=== PATIENT | female | born 1955 | race African-American/Black ===

== ENCOUNTER 2021-03-26 13:14 | Inpatient (IN) | payer MEDICARE, BC ==
[~2021-03-26] VITALS: Ht 167.6 cm; Wt 63.5 kg
[2021-03-26] VITALS (13 sets, daily range): BP systolic 78–110; BP diastolic 32–68
[~2021-03-26 13:14] MED LIST: BENA20TA10 PO; CARV12.545 PO; CEFU125S2 PO; CLIN300C12 PO; EZET10TA13 PO; GABA-290 PO; INSU100C6 SQ; INSU3INS6 SUBCUT; METF-416 PO; OMEG1CAP17 PO; PANT40TA51 PO; ROSU40TA PO; TICA90TA PO
[2021-03-26] MEDS ORDERED: VANCOMYCIN 1 G PREMIX 200 ML IV ONE (13:45)
[2021-03-26] MEDS ORDERED: SODIUM CHLORIDE 0.9% 1000ML BAG (SEPSIS BOLUS) IV ONE (13:45)
[2021-03-26] MEDS ORDERED: PIPERACILLIN/TAZ 3.375G PREMIX 50 ML IV ONE (13:45)
[2021-03-26] MEDS ORDERED: ONDANSETRON HCL 4MG/2ML INJ IV PRN (14:00)
[2021-03-26] MEDS ORDERED: MORPHINE SULFATE 2 MG/ML CPJ (NOT FOR IM USE) IV PRN (14:00)
[2021-03-26] MEDS ORDERED: NOREPINEPHRINE 8 MG in DEXT 5% WATER 242 ML IV PRN (14:15)
[2021-03-26] MEDS ORDERED: LEVOFLOXACIN 500MG PREMIX 100 ML IV SCH (14:30)
[2021-03-26 14:32] LABS: CLARITY URINE CLOUDY (CLEAR); COLOR URINE YELLOW (YELLOW); KETONES URINE NEGATIVE (NEGATIVE); LEUKOCYTE ESTERASE URINE NEGATIVE (NEGATIVE); NITRITE URINE NEGATIVE (NEGATIVE); OCCULT BLOOD URINE NEGATIVE (NEGATIVE); PROTEIN URINE NEGATIVE (NEGATIVE); SPECIFIC GRAVITY URINE 1.014 (1.005-1.030); UROBILINOGEN URINE 0.2 E.U./dL (0.2-1.0)
[2021-03-26 14:35] LABS: BASOPHILS % 0.3 % (0.0-2.0); EOSINOPHILS % 0.2 % (0.0-5.0); HEMATOCRIT. 24.7 % (36.0-48.0); HEMOGLOBIN. 7.7 g/dL (12.0-16.0); LYMPHOCYTES % 7.5 % (20.0-50.0); MEAN CORPUSCULAR HEMOGLOBIN 29.6 pg (28.0-32.0); MEAN CORPUSCULAR VOLUME 94.5 fL (81.0-99.0); MEAN PLATELET VOLUME 6.5 fl (7.4-10.4); MONOCYTES % 2.6 % (2.0-8.0); NEUTROPHILS % 89.4 % (40.0-76.0); PLATELET 673 x1000/uL (130-400); RED BLOOD CELL COUNT 2.62 mill/uL (4.2-5.4); RED CELL DISTRIBUTION WIDTH 16.9 % (11.6-14.6)
[2021-03-26 14:36] LABS: CHLORIDE 101 mEq/L (98-107)
[2021-03-26 14:40] LABS: PROTHROMBIN TIME 10.7 sec (9.6-11.0)
[2021-03-26] MEDS ORDERED: METRONIDAZOLE 500 MG PREMIX 100 ML IV NR ×2 (15:30→22:30)
[2021-03-26] MEDS ORDERED: NOREPINEPHRINE 8MG/250ML PMX 250 ML IV STA (16:07)
[2021-03-26] MEDS: NOREPINEPHRINE 8 MG in DEXT 5% WATER 242 ML IV PRN (16:49)
[2021-03-26] MEDS ORDERED: DEXTROSE 50% WATER 50ML SYRINGE IV PRN (20:00)
[2021-03-26] MEDS: BLOOD SUGAR DIAGNOSTIC STRIP TEST SCH (23:26)
[2021-03-26] MEDS: DEXT 5%/0.45% NACL 1000ML 1,000 ML IV SCH (23:32)
[2021-03-26] MEDS: INSULIN LISPRO 100 UNITS/ML SUBCUT SCH (23:35)
[2021-03-27] VITALS (117 sets, daily range): BP systolic 51–128; BP diastolic 25–81
[2021-03-27] MEDS: DEXT 5%/0.45% NACL 1000ML 1,000 ML IV SCH
[2021-03-27] MEDS: NOREPINEPHRINE 8 MG in DEXT 5% WATER 242 ML IV PRN ×2 (04:31→11:03)
[2021-03-27 05:36] LABS: HEMATOCRIT. 24.4 % (36.0-48.0); MEAN CORPUSCULAR HEMOGLOBIN 28.7 pg (28.0-32.0); MEAN CORPUSCULAR VOLUME 105.1 fL (81.0-99.0); MEAN PLATELET VOLUME 6.9 fl (7.4-10.4); PLATELET 685 x1000/uL (130-400); RED BLOOD CELL COUNT 2.32 mill/uL (4.2-5.4); RED CELL DISTRIBUTION WIDTH 18.4 % (11.6-14.6)
[2021-03-27 05:37] LABS: CHLORIDE 100 mEq/L (98-107)
[2021-03-27 05:49] LABS: LDL CHOLESTEROL 49 mg/dL (5-100)
[2021-03-27 05:51] LABS: HDL CHOLESTEROL 48 mg/dL (40-59); HEMOGLOBIN. 6.7 g/dL (12.0-16.0)
[2021-03-27] MEDS: BLOOD SUGAR DIAGNOSTIC STRIP TEST SCH ×4 (06:29→21:40)
[2021-03-27] MEDS: INSULIN LISPRO 100 UNITS/ML SUBCUT SCH ×4 (06:34→21:00)
[2021-03-27] MEDS ORDERED: SODIUM BICARBONATE 8.4% 1 MEQ/ML 50ML SYR IV SCH (07:00)
[2021-03-27] MEDS ORDERED: SODIUM BICARBONATE 100 MEQ in DEXTROSE 5% WATER 1,000 ML IV SCH (09:00)
[2021-03-27] MEDS ORDERED: METRONIDAZOLE 500 MG PREMIX 100 ML IV SCH (09:00)
[2021-03-27 09:16] LABS: TOTAL IRON BINDING CAPACITY 196 ug/dL (250-450)
[2021-03-27 09:29] LABS: BG BASE EXCESS -22.8 mmol/L (-2.0-2.0); BG CARBOXYHEMOGLOBIN 0.6 % (0.5-1.5); BG DEOXYHEMOGLOBIN 2.3 % (0.0-5.0); BG FRACTION INSPIRED OXYGEN 21; BG HCO3 ACT 4.6 mmol/L (22.0-26.0); BG METHEMOGLOBIN 0.4 % (0.0-1.5); BG OXYGEN SATURATION 97.7 % (92.0-98.5); BG OXYHEMOGLOBIN 96.7 % (94.0-97.0); BG PCO2 14.6 mmHg (35.0-45.0); BG PH 7.114 (7.350-7.450); BG PO2 105.2 mmHg (75.0-100.0); BG SAMPLE SITE RIGHT RADIAL; BG TOTAL HEMOGLOBIN 6.1 g/dL (12.0-18.0); BG VENT MODE ROOM AIR
[2021-03-27] MEDS: PHENYLEPHRINE 100 MG in DEXT 5% WATER 240 ML IV PRN (09:41)
[2021-03-27] MEDS ORDERED: VANCOMYCIN 500 MG PREMIX 100 ML IV NR (10:00)
[2021-03-27] MEDS ORDERED: SODIUM BICARBONATE 8.4% 1 MEQ/ML 50ML SYR IV NR ×2 (10:30→14:30)
[2021-03-27] MEDS: METRONIDAZOLE 500 MG PREMIX 100 ML IV SCH ×2 (10:35→21:42)
[2021-03-27 13:50] LABS: PLATELET ESTIMATE INCREASED
[2021-03-27 13:53] LABS: BG BASE EXCESS -20.2 mmol/L (-2.0-2.0); BG CARBOXYHEMOGLOBIN 0.3 % (0.5-1.5); BG DEOXYHEMOGLOBIN 1.7 % (0.0-5.0); BG FRACTION INSPIRED OXYGEN 21; BG HCO3 ACT 5.8 mmol/L (22.0-26.0); BG METHEMOGLOBIN 0.5 % (0.0-1.5); BG OXYGEN SATURATION 98.3 % (92.0-98.5); BG OXYHEMOGLOBIN 97.5 % (94.0-97.0); BG PCO2 14.9 mmHg (35.0-45.0); BG PH 7.205 (7.350-7.450); BG PO2 127.8 mmHg (75.0-100.0); BG SAMPLE SITE LEFT RADIAL; BG TOTAL HEMOGLOBIN 8.5 g/dL (12.0-18.0); BG VENT MODE ROOM AIR
[2021-03-27] MEDS: SODIUM BICARBONATE 150 MEQ in DEXTROSE 5% WATER 1,000 ML IV SCH (16:24)
[2021-03-27 16:28] LABS: HEMATOCRIT 24.9 % (36.0-48.0); HEMOGLOBIN 7.7 g/dL (12.0-16.0); MEAN CORPUSCULAR HEMOGLOBIN 29.5 pg (28.0-32.0); MEAN CORPUSCULAR VOLUME 94.9 fL (81.0-99.0); PLATELET 471 x1000/uL (130-400); RED BLOOD CELL COUNT 2.63 mill/uL (4.2-5.4); RED CELL DISTRIBUTION WIDTH 15.7 % (11.6-14.6)
[2021-03-27 16:38] LABS: INR 1.2; PROTHROMBIN TIME 12.3 sec (9.6-11.0)
[2021-03-27 16:43] LABS: BG BASE EXCESS -15.6 mmol/L (-2.0-2.0); BG CARBOXYHEMOGLOBIN 0.3 % (0.5-1.5); BG DEOXYHEMOGLOBIN 3.8 % (0.0-5.0); BG FRACTION INSPIRED OXYGEN 21; BG HCO3 ACT 9.4 mmol/L (22.0-26.0); BG METHEMOGLOBIN 0.3 % (0.0-1.5); BG OXYGEN SATURATION 96.2 % (92.0-98.5); BG OXYHEMOGLOBIN 95.6 % (94.0-97.0); BG PCO2 20.6 mmHg (35.0-45.0); BG PH 7.278 (7.350-7.450); BG PO2 78.9 mmHg (75.0-100.0); BG SAMPLE SITE RIGHT RADIAL; BG TOTAL HEMOGLOBIN 9.3 g/dL (12.0-18.0); BG VENT MODE ROOM AIR
[2021-03-27 18:15] LABS: T4 FREE 1.24 ng/dL (0.76-1.46)
[2021-03-27] MEDS: CEFEPIME 1,000 MG in DEXTROSE 5% WATER 50 ML IV SCH (18:21)
[2021-03-27] MEDS: PANTOPRAZOLE SODIUM 40 MG/VIAL IV SCH (21:42)
[2021-03-27 23:11] LABS: HEMATOCRIT 32.8 % (36.0-48.0); HEMOGLOBIN 10.2 g/dL (12.0-16.0); MEAN CORPUSCULAR HEMOGLOBIN 29.3 pg (28.0-32.0); MEAN CORPUSCULAR VOLUME 94.5 fL (81.0-99.0); PLATELET 432 x1000/uL (130-400); RED BLOOD CELL COUNT 3.48 mill/uL (4.2-5.4); RED CELL DISTRIBUTION WIDTH 15.8 % (11.6-14.6)
[2021-03-27 23:29] LABS: CREATINE KINASE MB FRACTION 5.6 ng/mL (0.5-3.6)
[2021-03-28] VITALS (96 sets, daily range): BP systolic 53–146; BP diastolic 34–108
[2021-03-28] MEDS: SODIUM BICARBONATE 150 MEQ in DEXTROSE 5% WATER 1,000 ML IV SCH (03:57)
[2021-03-28 04:55] LABS: HEMATOCRIT. 33.4 % (36.0-48.0); HEMOGLOBIN. 10.2 g/dL (12.0-16.0); MEAN CORPUSCULAR VOLUME 95.5 fL (81.0-99.0); MEAN PLATELET VOLUME 7.3 fl (7.4-10.4); PLATELET 414 x1000/uL (130-400); RED CELL DISTRIBUTION WIDTH 16.6 % (11.6-14.6)
[2021-03-28 04:59] LABS: INR 1.2; PROTHROMBIN TIME 12.3 sec (9.6-11.0)
[2021-03-28 05:11] LABS: PHOSPHORUS 2.1 mg/dL (2.5-4.9)
[2021-03-28 05:14] LABS: CREATINE KINASE MB FRACTION 5.6 ng/mL (0.5-3.6)
[2021-03-28 05:18] LABS: FOLIC ACID (FOLATE) SERUM 11.5 ng/mL (>5.38)
[2021-03-28] MEDS: BLOOD SUGAR DIAGNOSTIC STRIP TEST SCH ×4 (06:07→21:32)
[2021-03-28] MEDS ORDERED: SODIUM BICARBONATE 8.4% 1 MEQ/ML 50ML SYR IV NR (06:15)
[2021-03-28] MEDS: INSULIN LISPRO 100 UNITS/ML SUBCUT SCH ×4 (06:22→21:00)
[2021-03-28] MEDS ORDERED: POTASSIUM PHOS,M-BASIC-D-BASIC 15 MMOL in DEXT 5% WATER 245 ML IV ONE (07:00)
[2021-03-28 07:26] LABS: BG BASE EXCESS -4.7 mmol/L (-2.0-2.0); BG CARBOXYHEMOGLOBIN 0.2 % (0.5-1.5); BG DEOXYHEMOGLOBIN 1.6 % (0.0-5.0); BG HCO3 ACT 18.4 mmol/L (22.0-26.0); BG METHEMOGLOBIN 0.1 % (0.0-1.5); BG OXYGEN SATURATION 98.4 % (92.0-98.5); BG OXYHEMOGLOBIN 98.1 % (94.0-97.0); BG PCO2 26.5 mmHg (35.0-45.0); BG PH 7.459 (7.350-7.450); BG PO2 140.3 mmHg (75.0-100.0); BG SAMPLE SITE RIGHT RADIAL; BG TOTAL HEMOGLOBIN 8.2 g/dL (12.0-18.0); BG VENT MODE NASAL CANNULA
[2021-03-28] MEDS ORDERED: MAGNESIUM 4 G PREMIX 100 ML IV NR (08:00)
[2021-03-28] MEDS ORDERED: DIATR MEGLU/DIATRIZOATE SOLN 30ML PO SCH (08:45)
[2021-03-28] MEDS ORDERED: LEVOFLOXACIN 250MG PREMIX 100 ML IV SCH (09:00)
[2021-03-28 09:23] LABS: PLATELET ESTIMATE INCREASED
[2021-03-28 12:05] LABS: D-DIMER 0.81 mg/L FEU (<0.50)
[2021-03-28] MEDS ORDERED: MIDAZOLAM HCL 5 MG/5 ML VIAL ONE (12:27)
[2021-03-28] MEDS ORDERED: FENTANYL CITRATE/PF 50MCG/ML 2ML VIAL ONE (12:28)
[2021-03-28] MEDS ORDERED: MIDAZOLAM HCL 2 MG/2 ML VIAL IV PRN (12:41)
[2021-03-28] MEDS: METRONIDAZOLE 500 MG PREMIX 100 ML IV SCH ×2 (13:04→21:18)
[2021-03-28] MEDS: PANTOPRAZOLE SODIUM 40 MG/VIAL IV SCH ×2 (13:21→21:18)
[2021-03-28] MEDS ORDERED: LIDOCAINE HCL 1% 20ML VIAL (Pyxis) INJ ONE (13:40)
[2021-03-28] MEDS ORDERED: HEPARIN 1000 UNITS/ML 10ML ONE (13:40)
[2021-03-28 15:32] LABS: HEMATOCRIT 30.3 % (36.0-48.0); MEAN CORPUSCULAR HEMOGLOBIN 29.3 pg (28.0-32.0); MEAN CORPUSCULAR VOLUME 88.7 fL (81.0-99.0); PLATELET 413 x1000/uL (130-400); RED BLOOD CELL COUNT 3.41 mill/uL (4.2-5.4); RED CELL DISTRIBUTION WIDTH 15.5 % (11.6-14.6)
[2021-03-28] MEDS: DEXT 5%/0.45% NACL 1000ML 1,000 ML IV SCH ×2 (15:35→17:16)
[2021-03-28] MEDS: PHENYLEPHRINE 100 MG in DEXT 5% WATER 240 ML IV PRN (15:37)
[2021-03-28 15:47] LABS: CREATINE KINASE MB FRACTION 3.5 ng/mL (0.5-3.6)
[2021-03-28] MEDS: CEFEPIME 1,000 MG in DEXTROSE 5% WATER 50 ML IV SCH (17:24)
[2021-03-28] MEDS ORDERED: VANCOMYCIN 500 MG PREMIX 100 ML IV SCH (20:00)
[2021-03-28 20:09] LABS: BG BASE EXCESS 4.9 mmol/L (-2.0-2.0); BG DEOXYHEMOGLOBIN 19.1 % (0.0-5.0); BG FRACTION INSPIRED OXYGEN 32; BG HCO3 ACT 29.3 mmol/L (22.0-26.0); BG METHEMOGLOBIN 0.3 % (0.0-1.5); BG OXYGEN SATURATION 80.8 % (92.0-98.5); BG OXYHEMOGLOBIN 80.6 % (94.0-97.0); BG PCO2 42.7 mmHg (35.0-45.0); BG PH 7.455 (7.350-7.450); BG PO2 41.5 mmHg (75.0-100.0); BG TOTAL HEMOGLOBIN 10.3 g/dL (12.0-18.0)
[2021-03-28 21:45] LABS: BG BASE EXCESS 8.5 mmol/L (-2.0-2.0); BG CARBOXYHEMOGLOBIN 0.3 % (0.5-1.5); BG DEOXYHEMOGLOBIN 0.8 % (0.0-5.0); BG HCO3 ACT 32.5 mmol/L (22.0-26.0); BG METHEMOGLOBIN 0.3 % (0.0-1.5); BG OXYGEN SATURATION 99.2 % (92.0-98.5); BG OXYHEMOGLOBIN 98.6 % (94.0-97.0); BG PCO2 42.6 mmHg (35.0-45.0); BG PO2 302.7 mmHg (75.0-100.0); BG TOTAL HEMOGLOBIN 10.2 g/dL (12.0-18.0)
[2021-03-28 22:54] LABS: HEMATOCRIT 31.3 % (36.0-48.0); HEMOGLOBIN 10.7 g/dL (12.0-16.0); MEAN CORPUSCULAR HEMOGLOBIN 29.8 pg (28.0-32.0); MEAN CORPUSCULAR VOLUME 87.7 fL (81.0-99.0); PLATELET 281 x1000/uL (130-400); RED BLOOD CELL COUNT 3.57 mill/uL (4.2-5.4); RED CELL DISTRIBUTION WIDTH 15.1 % (11.6-14.6)
[2021-03-29] VITALS (82 sets, daily range): BP systolic 82–173; BP diastolic 37–94
[2021-03-29] MEDS: PHENYLEPHRINE 100 MG in DEXT 5% WATER 240 ML IV PRN (00:51)
[2021-03-29] MEDS: DEXT 5%/0.45% NACL 1000ML 1,000 ML IV SCH ×3 (00:55→17:39)
[2021-03-29] MEDS: HYDROCODONE/ACETAMINOPHEN 5/325MG TABLET PO PRN (04:32)
[2021-03-29 05:17] LABS: HEMATOCRIT. 26.4 % (36.0-48.0); HEMOGLOBIN. 8.8 g/dL (12.0-16.0); MEAN CORPUSCULAR HEMOGLOBIN 29.1 pg (28.0-32.0); MEAN CORPUSCULAR VOLUME 86.9 fL (81.0-99.0); MEAN PLATELET VOLUME 7.2 fl (7.4-10.4); PLATELET 274 x1000/uL (130-400); RED BLOOD CELL COUNT 3.04 mill/uL (4.2-5.4); RED CELL DISTRIBUTION WIDTH 15.4 % (11.6-14.6)
[2021-03-29] MEDS: BLOOD SUGAR DIAGNOSTIC STRIP TEST SCH ×4 (06:48→21:00)
[2021-03-29] MEDS: INSULIN LISPRO 100 UNITS/ML SUBCUT SCH ×4 (06:48→21:00)
[2021-03-29 07:06] LABS: PHOSPHORUS 0.8 mg/dL (2.5-4.9)
[2021-03-29] MEDS ORDERED: POTASSIUM PHOS,M-BASIC-D-BASIC 30 MMOL in SODIUM CHLORIDE 0.9% 500 ML IV ONE (08:00)
[2021-03-29] MEDS ORDERED: POTASSIUM CHLORIDE INJ 40 MEQ in DEXT 5% WATER 250 ML IV NR (08:00)
[2021-03-29] MEDS: PANTOPRAZOLE SODIUM 40 MG/VIAL IV SCH ×2 (09:35→20:58)
[2021-03-29] MEDS: METRONIDAZOLE 500 MG PREMIX 100 ML IV SCH ×2 (09:36→20:58)
[2021-03-29] MEDS ORDERED: MAGNESIUM 2 G PREMIX 50 ML IV SCH (10:00)
[2021-03-29] MEDS ORDERED: DIATR MEGLU/DIATRIZOATE SOLN 30ML PO NR (11:05)
[2021-03-29] MEDS: FERROUS SULFATE 300MG/5ML UDC PO SCH ×2 (12:00→17:39)
[2021-03-29 14:52] LABS: HEMATOCRIT 29.4 % (36.0-48.0); HEMOGLOBIN 9.9 g/dL (12.0-16.0); MEAN CORPUSCULAR HEMOGLOBIN 29.8 pg (28.0-32.0); MEAN CORPUSCULAR VOLUME 88.6 fL (81.0-99.0); PLATELET 274 x1000/uL (130-400); RED BLOOD CELL COUNT 3.32 mill/uL (4.2-5.4); RED CELL DISTRIBUTION WIDTH 15.3 % (11.6-14.6)
[2021-03-29 17:03] LABS: PLATELET ESTIMATE NORMAL
[2021-03-29] MEDS: CEFEPIME 1,000 MG in DEXTROSE 5% WATER 50 ML IV SCH (17:38)
[2021-03-30] VITALS (95 sets, daily range): BP systolic 73–155; BP diastolic 29–79
[2021-03-30 01:09] LABS: HEMATOCRIT 26.5 % (36.0-48.0); HEMOGLOBIN 9.1 g/dL (12.0-16.0); MEAN CORPUSCULAR HEMOGLOBIN 30.1 pg (28.0-32.0); MEAN CORPUSCULAR VOLUME 86.9 fL (81.0-99.0); PLATELET 266 x1000/uL (130-400); RED BLOOD CELL COUNT 3.04 mill/uL (4.2-5.4); RED CELL DISTRIBUTION WIDTH 15.1 % (11.6-14.6)
[2021-03-30] MEDS: DEXT 5%/0.45% NACL 1000ML 1,000 ML IV SCH ×2 (02:35→11:28)
[2021-03-30 05:03] LABS: HEMOGLOBIN. 9.6 g/dL (12.0-16.0); MEAN PLATELET VOLUME 7.1 fl (7.4-10.4); PLATELET 290 x1000/uL (130-400); RED CELL DISTRIBUTION WIDTH 15.1 % (11.6-14.6)
[2021-03-30 05:11] LABS: PHOSPHORUS 2.1 mg/dL (2.5-4.9)
[2021-03-30] MEDS: INSULIN LISPRO 100 UNITS/ML SUBCUT SCH ×4 (06:15→20:47)
[2021-03-30] MEDS: PHENYLEPHRINE 100 MG in DEXT 5% WATER 240 ML IV PRN (06:18)
[2021-03-30] MEDS: BLOOD SUGAR DIAGNOSTIC STRIP TEST SCH ×4 (06:30→20:36)
[2021-03-30] MEDS: DOCUSATE SODIUM 100MG CAPSULE PO PRN (09:24)
[2021-03-30] MEDS: FERROUS SULFATE 300MG/5ML UDC PO SCH ×3 (09:24→17:47)
[2021-03-30] MEDS: PANTOPRAZOLE SODIUM 40 MG/VIAL IV SCH ×2 (09:24→20:36)
[2021-03-30] MEDS ORDERED: LEVOFLOXACIN 250MG PREMIX 100 ML IV SCH (11:00)
[2021-03-30] MEDS: HYDROCODONE/ACETAMINOPHEN 5/325MG TABLET PO PRN (11:11)
[2021-03-30] MEDS: METRONIDAZOLE 500 MG PREMIX 100 ML IV SCH ×2 (11:11→20:36)
[2021-03-30] MEDS ORDERED: PHENYLEPHRINE 100 MG in DEXT 5% WATER 240 ML IV PRN (11:30)
[2021-03-30] MEDS ORDERED: POTASSIUM PHOS,M-BASIC-D-BASIC 15 MMOL in DEXT 5% WATER 245 ML IV NR (11:30)
[2021-03-30] MEDS: METOCLOPRAMIDE HCL 10MG/2ML VIAL IV SCH ×3 (11:53→23:04)
[2021-03-30 14:19] LABS: PLATELET ESTIMATE NORMAL
[2021-03-30] MEDS ORDERED: VANCOMYCIN 750 MG PREMIX 150 ML IV SCH (15:00)
[2021-03-30] MEDS: CEFEPIME 1,000 MG in DEXTROSE 5% WATER 50 ML IV SCH (17:42)
[2021-03-31] VITALS (96 sets, daily range): BP systolic 65–168; BP diastolic 48–109
[2021-03-31] MEDS: BLOOD SUGAR DIAGNOSTIC STRIP TEST SCH ×4 (05:52→20:57)
[2021-03-31 05:57] LABS: CHLORIDE 104 mEq/L (98-107)
[2021-03-31 05:59] LABS: BASOPHILS % 0.3 % (0.0-2.0); EOSINOPHILS % 1.7 % (0.0-5.0); HEMOGLOBIN. 8.5 g/dL (12.0-16.0); LYMPHOCYTES % 8.3 % (20.0-50.0); MEAN CORPUSCULAR HEMOGLOBIN 28.8 pg (28.0-32.0); MEAN CORPUSCULAR VOLUME 88.1 fL (81.0-99.0); MEAN PLATELET VOLUME 7.6 fl (7.4-10.4); MONOCYTES % 4.3 % (2.0-8.0); NEUTROPHILS % 85.4 % (40.0-76.0); PLATELET 253 x1000/uL (130-400); RED BLOOD CELL COUNT 2.95 mill/uL (4.2-5.4); RED CELL DISTRIBUTION WIDTH 15.1 % (11.6-14.6)
[2021-03-31] MEDS: FERROUS SULFATE 300MG/5ML UDC PO SCH ×3 (06:00→17:09)
[2021-03-31] MEDS: INSULIN LISPRO 100 UNITS/ML SUBCUT SCH ×4 (06:00→20:57)
[2021-03-31] MEDS: METOCLOPRAMIDE HCL 10MG/2ML VIAL IV SCH ×4 (06:01→23:49)
[2021-03-31 06:07] LABS: PHOSPHORUS 1.6 mg/dL (2.5-4.9)
[2021-03-31] MEDS: PANTOPRAZOLE SODIUM 40 MG/VIAL IV SCH ×2 (08:29→20:57)
[2021-03-31] MEDS: METRONIDAZOLE 500 MG PREMIX 100 ML IV SCH ×2 (08:30→20:56)
[2021-03-31] MEDS: DOCUSATE SODIUM 100MG CAPSULE PO PRN (08:30)
[2021-03-31] MEDS: BISACODYL 5MG TABLET PO SCH ×2 (08:30→09:00)
[2021-03-31] MEDS: HYDROCODONE/ACETAMINOPHEN 5/325MG TABLET PO PRN (10:35)
[2021-03-31] MEDS ORDERED: POTASSIUM PHOS,M-BASIC-D-BASIC 30 MMOL in SODIUM CHLORIDE 0.9% 500 ML IV SCH (14:00)
[2021-03-31] MEDS ORDERED: [UNRECOGNIZED DRUG - REMARK] XX SCH (14:45)
[2021-03-31] MEDS: ACETAMINOPHEN 325MG TABLET PO PRN (15:01)
[2021-03-31] MEDS ORDERED: VANCOMYCIN 750 MG PREMIX 150 ML IV SCH (16:00)
[2021-03-31] MEDS: CEFEPIME 1,000 MG in DEXTROSE 5% WATER 50 ML IV SCH (17:10)
[2021-04-01] VITALS (60 sets, daily range): BP systolic 92–165; BP diastolic 49–84
[2021-04-01 04:28] LABS: BASOPHILS % 0.2 % (0.0-2.0); EOSINOPHILS % 1.8 % (0.0-5.0); HEMATOCRIT. 25.3 % (36.0-48.0); HEMOGLOBIN. 8.4 g/dL (12.0-16.0); LYMPHOCYTES % 11.9 % (20.0-50.0); MEAN CORPUSCULAR HEMOGLOBIN 29.1 pg (28.0-32.0); MEAN CORPUSCULAR VOLUME 87.6 fL (81.0-99.0); MEAN PLATELET VOLUME 6.8 fl (7.4-10.4); MONOCYTES % 8.3 % (2.0-8.0); NEUTROPHILS % 77.8 % (40.0-76.0); PLATELET 222 x1000/uL (130-400); RED BLOOD CELL COUNT 2.89 mill/uL (4.2-5.4); RED CELL DISTRIBUTION WIDTH 14.8 % (11.6-14.6)
[2021-04-01 04:43] LABS: CHLORIDE 107 mEq/L (98-107)
[2021-04-01 04:50] LABS: PHOSPHORUS 2.1 mg/dL (2.5-4.9)
[2021-04-01] MEDS: METOCLOPRAMIDE HCL 10MG/2ML VIAL IV SCH ×4 (05:49→23:06)
[2021-04-01] MEDS: FERROUS SULFATE 300MG/5ML UDC PO SCH ×3 (05:49→18:21)
[2021-04-01] MEDS: BLOOD SUGAR DIAGNOSTIC STRIP TEST SCH ×4 (06:39→20:46)
[2021-04-01] MEDS: INSULIN LISPRO 100 UNITS/ML SUBCUT SCH ×4 (06:39→20:46)
[2021-04-01] MEDS: DOCUSATE SODIUM 100MG CAPSULE PO PRN (08:42)
[2021-04-01] MEDS: PANTOPRAZOLE SODIUM 40 MG/VIAL IV SCH ×2 (08:42→20:46)
[2021-04-01] MEDS: METRONIDAZOLE 500 MG PREMIX 100 ML IV SCH ×2 (08:43→20:46)
[2021-04-01] MEDS: BISACODYL 5MG TABLET PO SCH (08:43)
[2021-04-01] MEDS ORDERED: POTASSIUM CHLORIDE INJ 60 MEQ in DEXT 5% WATER 500 ML IV SCH (09:00)
[2021-04-01] MEDS ORDERED: POTASSIUM CHLORIDE 20MEQ/PACKET PO SCH (09:00)
[2021-04-01] MEDS ORDERED: SODIUM PHOS,M-BASIC-D-BASIC 30 MM in DEXT 5% WATER 500 ML IV SCH (11:00)
[2021-04-01] MEDS: ACETAMINOPHEN 325MG TABLET PO PRN ×2 (12:00→18:49)
[2021-04-01] MEDS: CEFEPIME 1,000 MG in DEXTROSE 5% WATER 50 ML IV SCH (17:50)
[2021-04-01] MEDS: MORPHINE SULFATE 2 MG/ML CPJ (NOT FOR IM USE) IV PRN (23:06)
[2021-04-02] VITALS (51 sets, daily range): BP systolic 72–158; BP diastolic 37–102
[2021-04-02 05:57] LABS: CHLORIDE 108 mEq/L (98-107)
[2021-04-02 06:00] LABS: HEMATOCRIT. 25.3 % (36.0-48.0); HEMOGLOBIN. 8.5 g/dL (12.0-16.0); MEAN CORPUSCULAR HEMOGLOBIN 29.5 pg (28.0-32.0); MEAN CORPUSCULAR VOLUME 87.9 fL (81.0-99.0); MEAN PLATELET VOLUME 7.5 fl (7.4-10.4); PLATELET 262 x1000/uL (130-400); RED BLOOD CELL COUNT 2.87 mill/uL (4.2-5.4); RED CELL DISTRIBUTION WIDTH 15.3 % (11.6-14.6)
[2021-04-02] MEDS: FERROUS SULFATE 300MG/5ML UDC PO SCH ×2 (06:26→11:44)
[2021-04-02] MEDS: INSULIN LISPRO 100 UNITS/ML SUBCUT SCH ×3 (06:27→16:50)
[2021-04-02] MEDS: METOCLOPRAMIDE HCL 10MG/2ML VIAL IV SCH ×2 (06:27→11:44)
[2021-04-02] MEDS: BLOOD SUGAR DIAGNOSTIC STRIP TEST SCH ×3 (06:27→16:49)
[2021-04-02] MEDS ORDERED: POTASSIUM CHLORIDE 20MEQ/PACKET PO SCH (09:00)
[2021-04-02] MEDS: METRONIDAZOLE 500 MG PREMIX 100 ML IV SCH (09:58)
[2021-04-02] MEDS: PANTOPRAZOLE SODIUM 40 MG/VIAL IV SCH (10:00)
[2021-04-02] MEDS ORDERED: MAGNESIUM 4 G PREMIX 100 ML IV SCH (10:00)
[2021-04-02] MEDS: BISACODYL 5MG TABLET PO SCH (10:01)
[2021-04-02] MEDS: DOCUSATE SODIUM 100MG CAPSULE PO PRN (10:01)
[2021-04-02 10:33] LABS: PLATELET ESTIMATE NORMAL
[2021-04-02] MEDS: MORPHINE SULFATE 2 MG/ML CPJ (NOT FOR IM USE) IV PRN (15:06)
[2021-04-02] MEDS: CEFEPIME 1,000 MG in DEXTROSE 5% WATER 50 ML IV SCH (16:22)
== END 2021-04-02 20:20 | DRG 871 ==
LOC: ER 13:50 → ENRESERV 15:11 → CANRESERV 15:11 → EDBEDREQSVC 16:07 → MICUSO 16:07 → SUPCPDRO 18:22 → ENRESERV 19:46 → MICUSO 21:08
PROVIDERS: ADMIT Internal Medicine Nephrology; ATTEND Internal Medicine Nephrology
PROC: 06HY33Z Insertion of Infusion Device into Lower Vein, Percutaneous Approach (ICD-10-PCS; 2021-03-26)
PROC: B54BZZA Ultrasonography of Right Lower Extremity Veins, Guidance (ICD-10-PCS; 2021-03-26)
PROC: 30233N1 Transfusion of Nonautologous Red Blood Cells into Peripheral Vein, Percutaneous Approach (ICD-10-PCS; principal; 2021-03-27)
PROC: 02HV33Z Insertion of Infusion Device into Superior Vena Cava, Percutaneous Approach (ICD-10-PCS; 2021-03-27)
PROC: B548ZZA Ultrasonography of Superior Vena Cava, Guidance (ICD-10-PCS; 2021-03-27)
PROC: 02HV33Z Insertion of Infusion Device into Superior Vena Cava, Percutaneous Approach (ICD-10-PCS; 2021-03-28)
PROC: B548ZZA Ultrasonography of Superior Vena Cava, Guidance (ICD-10-PCS; 2021-03-28)
PROC: 0DJ08ZZ Inspection of Upper Intestinal Tract, Via Natural or Artificial Opening Endoscopic (ICD-10-PCS; 2021-03-28)
PROC: 5A1D70Z Performance of Urinary Filtration, Intermittent, Less than 6 Hours Per Day (ICD-10-PCS; 2021-03-28)
DX: A41.9 Sepsis, unspecified organism (principal); R65.21 Severe sepsis with septic shock; J18.9 Pneumonia, unspecified organism; J96.00 Acute respiratory failure, unspecified whether with hypoxia or hypercapnia; N17.0 Acute kidney failure with tubular necrosis; I69.354 Hemiplegia and hemiparesis following cerebral infarction affecting left non-dominant side; E44.0 Moderate protein-calorie malnutrition; E87.1 Hypo-osmolality and hyponatremia; E11.52 Type 2 diabetes mellitus with diabetic peripheral angiopathy with gangrene; E87.4 Mixed disorder of acid-base balance; J98.11 Atelectasis; E87.2 Acidosis; K92.1 Melena; L89.899 Pressure ulcer of other site, unspecified stage; I27.20 Pulmonary hypertension, unspecified; E11.621 Type 2 diabetes mellitus with foot ulcer; D53.9 Nutritional anemia, unspecified; E11.22 Type 2 diabetes mellitus with diabetic chronic kidney disease; E11.649 Type 2 diabetes mellitus with hypoglycemia without coma; E83.39 Other disorders of phosphorus metabolism; E87.5 Hyperkalemia; E87.6 Hypokalemia; F17.210 Nicotine dependence, cigarettes, uncomplicated; N18.9 Chronic kidney disease, unspecified; K31.84 Gastroparesis; L97.529 Non-pressure chronic ulcer of other part of left foot with unspecified severity; K52.9 Noninfective gastroenteritis and colitis, unspecified; K56.41 Fecal impaction; E11.43 Type 2 diabetes mellitus with diabetic autonomic (poly)neuropathy; I12.9 Hypertensive chronic kidney disease with stage 1 through stage 4 chronic kidney disease, or unspecified chronic kidney disease; T87.81 Dehiscence of amputation stump; Z20.822 Contact with and (suspected) exposure to COVID-19; Z87.11 Personal history of peptic ulcer disease; Z74.01 Bed confinement status; Z79.4 Long term (current) use of insulin; Z82.49 Family history of ischemic heart disease and other diseases of the circulatory system; Z68.22 Body mass index [BMI] 22.0-22.9, adult; Z88.0 Allergy status to penicillin; Z79.899 Other long term (current) drug therapy; Y83.5 Amputation of limb(s) as the cause of abnormal reaction of the patient, or of later complication, without mention of misadventure at the time of the procedure; Y92.89 Other specified places as the place of occurrence of the external cause; Z89.432 Acquired absence of left foot; E83.42 Hypomagnesemia; I99.8 Other disorder of circulatory system
CPT/HCPCS: 36415; 36600; 71045; 71250; 74176; 76937; 80048; 80053; 80061; 80202; 81003; 82270; 82375; 82550; 82553; 82607; 82728; 82746; 82805; 82962; 83036; 83540; 83550; 83605; 83735; 83880; 84100; 84132; 84145; 84439; 84443; 84484; 85025; 85027; 85044; 85379; 85384; 86850; 86900; 86920; 87426; 87493; 92610; 93005; 93306; 93970; 97162; 99291; A6261; C1725; C1752; C9113; J0692; J1644; J1815; J1956; J2250; J2270; J2370; J2405; J2765; J3010; J3370; J3475; J3480; J3490; J7030; J7040; J7042; J7060; J7070; P9016; Q9963

== ENCOUNTER 2023-02-23 08:30 | Inpatient (IN) | payer MEDICARE, BC, OTHER ==
[~2023-02-23] VITALS: Ht 165.1 cm; Wt 80.7 kg
[~2023-02-23 08:30] MED LIST changes: +BENA-8 PO; -BENA20TA10 PO; +CLIN-194 PO; -CLIN300C12 PO
[2023-02-23] MEDS ORDERED: VANCOMYCIN 1G PREMIX 200 ML IV ONE (09:30)
[2023-02-23 10:41] LABS: CHLORIDE 108 mEq/L (98-107)
[2023-02-23 10:44] LABS: BASOPHILS % 0.9 % (0.0-2.0); EOSINOPHILS % 4.3 % (0.0-5.0); HEMATOCRIT. 26.3 % (36.0-48.0); HEMOGLOBIN. 8.3 g/dL (12.0-16.0); LYMPHOCYTES % 21.9 % (20.0-50.0); MEAN CORPUSCULAR HEMOGLOBIN 28.9 pg (28.0-32.0); MEAN CORPUSCULAR VOLUME 91.1 fL (81.0-99.0); MONOCYTES % 7.2 % (2.0-8.0); NEUTROPHILS % 65.7 % (40.0-76.0); RED BLOOD CELL COUNT 2.89 mill/uL (4.2-5.4); RED CELL DISTRIBUTION WIDTH 18.2 % (11.6-14.6)
[2023-02-23] MEDS ORDERED: ONDANSETRON HCL 4MG/2ML INJ IV PRN (10:45)
[2023-02-23 10:47] LABS: INR 0.9
[2023-02-23] MEDS ORDERED: VANCOMYCIN 1G PREMIX 200 ML IV NR (12:00)
[2023-02-23] MEDS ORDERED: LEVOFLOXACIN 500MG PREMIX 100 ML IV NR (12:00)
[2023-02-23] MEDS ORDERED: LIDOCAINE HCL 1% 30ML VIAL (10MG/ML) ONE (13:02)
[2023-02-23] MEDS: GABAPENTIN 100MG CAPSULE PO SCH (14:39)
[2023-02-23] MEDS ORDERED: TICAGRELOR 90 MG TABLET PO SCH (17:00)
[2023-02-23 22:30] VITALS: BP 160/53
[2023-02-23 22:52] VITALS: BP 160/53
[2023-02-24] VITALS (9 sets, daily range): BP systolic 97–167; BP diastolic 43–66
[2023-02-24] MEDS ORDERED: DEXTROSE 50% WATER 50ML SYRINGE IV PRN (01:30)
[2023-02-24] MEDS: CARVEDILOL 12.5MG TABLET PO SCH ×3 (01:39→21:00)
[2023-02-24] MEDS: GABAPENTIN 100MG CAPSULE PO SCH ×4 (01:39→21:43)
[2023-02-24 06:25] LABS: CHLORIDE 107 mEq/L (98-107)
[2023-02-24] MEDS: INSULIN LISPRO 100 UNITS/ML SUBCUT SCH ×4 (06:27→21:45)
[2023-02-24 06:34] LABS: BASOPHILS % 0.7 % (0.0-2.0); EOSINOPHILS % 4.3 % (0.0-5.0); HEMATOCRIT. 22.8 % (36.0-48.0); LYMPHOCYTES % 19.4 % (20.0-50.0); MEAN CORPUSCULAR HEMOGLOBIN 27.9 pg (28.0-32.0); MEAN CORPUSCULAR VOLUME 90.2 fL (81.0-99.0); MEAN PLATELET VOLUME 6.2 fl (7.4-10.4); NEUTROPHILS % 67.6 % (40.0-76.0); PLATELET 526 x1000/uL (130-400); RED BLOOD CELL COUNT 2.52 mill/uL (4.2-5.4); RED CELL DISTRIBUTION WIDTH 17.6 % (11.6-14.6)
[2023-02-24] MEDS: BLOOD SUGAR DIAGNOSTIC STRIP TEST SCH ×4 (06:47→21:35)
[2023-02-24] MEDS: ASPIRIN 81MG TABLET PO SCH (08:17)
[2023-02-24] MEDS: LISINOPRIL 5MG TABLET PO SCH (08:33)
[2023-02-24] MEDS ORDERED: IOHEXOL-350 100 ML BOTTLE ONE (08:44)
[2023-02-24 09:24] LABS: TOTAL IRON BINDING CAPACITY 226 ug/dL (250-450)
[2023-02-24] MEDS: EZETIMIBE 10MG TABLET PO SCH (09:51)
[2023-02-24] MEDS ORDERED: ENOXAPARIN 40MG/0.4ML SYR SUBCUT SCH (11:00)
[2023-02-24] MEDS ORDERED: LEVOFLOXACIN 250MG PREMIX 50 ML IV SCH (12:00)
[2023-02-24] MEDS ORDERED: LEVOFLOXACIN 500MG PREMIX 100 ML IV SCH (12:00)
[2023-02-24] MEDS: FERROUS SULFATE 325MG TABLET PO SCH ×2 (12:35→17:13)
[2023-02-24] MEDS: CLONIDINE 0.1MG TABLET PO PRN (13:37)
[2023-02-24] MEDS ORDERED: VANCOMYCIN 1G PREMIX 200 ML IV SCH (14:00)
[2023-02-24] MEDS: PANTOPRAZOLE SODIUM 40 MG/VIAL IV SCH (17:12)
[2023-02-24] MEDS: METRONIDAZOLE 500MG TABLET PO SCH (17:13)
[2023-02-24] MEDS ORDERED: HYDRALAZINE 20MG/ML VIAL IV NR (17:15)
[2023-02-24] MEDS: ACETAMINOPHEN 325MG TABLET PO PRN (18:04)
[2023-02-24] MEDS: CEFTRIAXONE 1GM PREMIX 50 ML IV SCH (18:08)
[2023-02-24 20:07] LABS: HEMATOCRIT 28.2 % (36.0-48.0); HEMOGLOBIN 9.3 g/dL (12.0-16.0)
[2023-02-24 20:28] LABS: FERRITIN 29 ng/mL (10-291)
[2023-02-24 20:43] LABS: VITAMIN B12 SERUM 489 pg/mL (211-911)
[2023-02-24 20:51] LABS: FOLIC ACID (FOLATE) SERUM > 20.00 ng/mL (>5.38)
[2023-02-24] MEDS: VANCOMYCIN 1G PREMIX 200 ML IV SCH (21:43)
[2023-02-25] VITALS: BP 155/47
[2023-02-25] MEDS: ACETAMINOPHEN 325MG TABLET PO PRN (01:38)
[2023-02-25 04:00] VITALS: BP 126/87
[2023-02-25] MEDS: BLOOD SUGAR DIAGNOSTIC STRIP TEST SCH ×4 (05:45→21:16)
[2023-02-25] MEDS: METRONIDAZOLE 500MG TABLET PO SCH ×2 (05:52→17:22)
[2023-02-25] MEDS: GABAPENTIN 100MG CAPSULE PO SCH ×3 (05:52→21:23)
[2023-02-25] MEDS: INSULIN LISPRO 100 UNITS/ML SUBCUT SCH ×4 (05:54→21:26)
[2023-02-25 06:40] LABS: BASOPHILS % 0.4 % (0.0-2.0); EOSINOPHILS % 4.4 % (0.0-5.0); HEMATOCRIT. 26.8 % (36.0-48.0); HEMOGLOBIN. 8.9 g/dL (12.0-16.0); LYMPHOCYTES % 19.1 % (20.0-50.0); MEAN CORPUSCULAR HEMOGLOBIN 28.8 pg (28.0-32.0); MEAN CORPUSCULAR VOLUME 86.7 fL (81.0-99.0); MEAN PLATELET VOLUME 6.1 fl (7.4-10.4); NEUTROPHILS % 67.1 % (40.0-76.0); PLATELET 477 x1000/uL (130-400); RED BLOOD CELL COUNT 3.09 mill/uL (4.2-5.4); RED CELL DISTRIBUTION WIDTH 17.5 % (11.6-14.6)
[2023-02-25 07:26] LABS: CHLORIDE 103 mEq/L (98-107)
[2023-02-25 08:00] VITALS: BP 172/75
[2023-02-25] MEDS: CARVEDILOL 12.5MG TABLET PO SCH ×2 (09:24→21:23)
[2023-02-25] MEDS: LISINOPRIL 5MG TABLET PO SCH (09:24)
[2023-02-25] MEDS: EZETIMIBE 10MG TABLET PO SCH (09:24)
[2023-02-25] MEDS: FERROUS SULFATE 325MG TABLET PO SCH ×2 (09:24→17:22)
[2023-02-25] MEDS: PANTOPRAZOLE SODIUM 40 MG/VIAL IV SCH (09:25)
[2023-02-25] MEDS: AMLODIPINE 5MG TABLET PO SCH (09:25)
[2023-02-25] MEDS ORDERED: INSULIN GLARGINE 100 UNITS/ML SUBCUT SCH (10:00)
[2023-02-25 12:00] VITALS: BP 134/54
[2023-02-25 16:00] VITALS: BP 115/41
[2023-02-25] MEDS: ASCORBIC ACID 500 MG TABLET PO SCH (17:21)
[2023-02-25] MEDS: CYANOCOBALAMIN 1000MCG/ML VIAL SUBCUT SCH (17:22)
[2023-02-25] MEDS: CEFTRIAXONE 1GM PREMIX 50 ML IV SCH (17:38)
[2023-02-25 20:00] VITALS: BP 162/75
[2023-02-25] MEDS: VANCOMYCIN 1G PREMIX 200 ML IV SCH (21:23)
[2023-02-26] VITALS: BP 171/71
[2023-02-26] MEDS: CLONIDINE 0.1MG TABLET PO PRN (00:36)
[2023-02-26 04:00] VITALS: BP 140/72
[2023-02-26] MEDS: METRONIDAZOLE 500MG TABLET PO SCH ×2 (06:10→20:02)
[2023-02-26] MEDS: FERROUS SULFATE 325MG TABLET PO SCH ×2 (06:10→20:02)
[2023-02-26] MEDS: GABAPENTIN 100MG CAPSULE PO SCH ×3 (06:10→21:20)
[2023-02-26] MEDS: BLOOD SUGAR DIAGNOSTIC STRIP TEST SCH ×4 (06:17→21:34)
[2023-02-26] MEDS: ASCORBIC ACID 500 MG TABLET PO SCH ×2 (06:21→20:02)
[2023-02-26] MEDS: INSULIN LISPRO 100 UNITS/ML SUBCUT SCH ×4 (06:21→21:34)
[2023-02-26 07:21] LABS: BASOPHILS % 0.7 % (0.0-2.0); HEMATOCRIT. 25.2 % (36.0-48.0); HEMOGLOBIN. 8.4 g/dL (12.0-16.0); LYMPHOCYTES % 20.6 % (20.0-50.0); MEAN CORPUSCULAR HEMOGLOBIN 29.3 pg (28.0-32.0); MEAN CORPUSCULAR VOLUME 87.8 fL (81.0-99.0); MEAN PLATELET VOLUME 6.3 fl (7.4-10.4); MONOCYTES % 8.5 % (2.0-8.0); NEUTROPHILS % 66.2 % (40.0-76.0); PLATELET 444 x1000/uL (130-400); RED BLOOD CELL COUNT 2.87 mill/uL (4.2-5.4); RED CELL DISTRIBUTION WIDTH 17.5 % (11.6-14.6)
[2023-02-26 07:40] LABS: CHLORIDE 104 mEq/L (98-107)
[2023-02-26 07:48] LABS: PHOSPHORUS 2.8 mg/dL (2.5-4.9)
[2023-02-26 08:00] VITALS: BP 140/74
[2023-02-26] MEDS: ASPIRIN 81MG TABLET PO SCH ×2 (09:00→09:40)
[2023-02-26] MEDS: CYANOCOBALAMIN 1000MCG/ML VIAL SUBCUT SCH (09:36)
[2023-02-26] MEDS: PANTOPRAZOLE SODIUM 40 MG/VIAL IV SCH (09:39)
[2023-02-26] MEDS: LISINOPRIL 5MG TABLET PO SCH (09:40)
[2023-02-26] MEDS: CARVEDILOL 12.5MG TABLET PO SCH ×2 (09:40→21:20)
[2023-02-26] MEDS: AMLODIPINE 5MG TABLET PO SCH (09:40)
[2023-02-26] MEDS: EZETIMIBE 10MG TABLET PO SCH (09:40)
[2023-02-26] MEDS: INSULIN GLARGINE 100 UNITS/ML SUBCUT SCH (09:47)
[2023-02-26] MEDS ORDERED: MAGNESIUM 2 G PREMIX 50 ML IV SCH ×2 (10:00)
[2023-02-26 12:00] VITALS: BP 131/46
[2023-02-26] MEDS ORDERED: CEFTRIAXONE 1,000 MG in DEXTROSE 5% WATER 50 ML IV SCH (17:00)
[2023-02-26 18:00] VITALS: BP 135/60
[2023-02-26 20:00] VITALS: BP 152/61
[2023-02-26] MEDS: VANCOMYCIN 1G PREMIX 200 ML IV SCH (21:20)
[2023-02-27] VITALS: BP 142/62
[2023-02-27 04:00] VITALS: BP 158/68
[2023-02-27] MEDS: METRONIDAZOLE 500MG TABLET PO SCH ×2 (06:18→17:56)
[2023-02-27] MEDS: ASCORBIC ACID 500 MG TABLET PO SCH ×2 (06:18→17:56)
[2023-02-27] MEDS: FERROUS SULFATE 325MG TABLET PO SCH ×2 (06:18→17:57)
[2023-02-27] MEDS: GABAPENTIN 100MG CAPSULE PO SCH ×3 (06:18→21:09)
[2023-02-27] MEDS: BLOOD SUGAR DIAGNOSTIC STRIP TEST SCH ×4 (06:19→21:08)
[2023-02-27] MEDS: INSULIN LISPRO 100 UNITS/ML SUBCUT SCH ×4 (06:27→21:08)
[2023-02-27 07:07] LABS: EOSINOPHILS % 5.3 % (0.0-5.0); HEMATOCRIT. 28.7 % (36.0-48.0); HEMOGLOBIN. 9.5 g/dL (12.0-16.0); LYMPHOCYTES % 23.2 % (20.0-50.0); MEAN CORPUSCULAR HEMOGLOBIN 28.8 pg (28.0-32.0); MEAN CORPUSCULAR VOLUME 87.1 fL (81.0-99.0); MEAN PLATELET VOLUME 6.1 fl (7.4-10.4); MONOCYTES % 9.3 % (2.0-8.0); NEUTROPHILS % 61.2 % (40.0-76.0); PLATELET 508 x1000/uL (130-400); RED CELL DISTRIBUTION WIDTH 17.6 % (11.6-14.6)
[2023-02-27 08:00] VITALS: BP 149/67
[2023-02-27 08:03] LABS: CHLORIDE 105 mEq/L (98-107)
[2023-02-27 08:10] LABS: PHOSPHORUS 3.2 mg/dL (2.5-4.9)
[2023-02-27] MEDS: ASPIRIN 81MG TABLET PO SCH (09:03)
[2023-02-27] MEDS: AMLODIPINE 5MG TABLET PO SCH (09:03)
[2023-02-27] MEDS: LISINOPRIL 5MG TABLET PO SCH (09:03)
[2023-02-27] MEDS: CARVEDILOL 12.5MG TABLET PO SCH ×2 (09:03→21:09)
[2023-02-27] MEDS: CYANOCOBALAMIN 1000MCG/ML VIAL SUBCUT SCH (09:03)
[2023-02-27] MEDS: PANTOPRAZOLE SODIUM 40 MG/VIAL IV SCH (09:03)
[2023-02-27] MEDS: EZETIMIBE 10MG TABLET PO SCH (09:04)
[2023-02-27] MEDS: INSULIN GLARGINE 100 UNITS/ML SUBCUT SCH (09:04)
[2023-02-27 12:00] VITALS: BP 144/55
[2023-02-27] MEDS: CEFTRIAXONE 1GM PREMIX 50 ML IV SCH (12:05)
[2023-02-27 16:00] VITALS: BP 114/50
[2023-02-27 20:00] VITALS: BP 132/53
[2023-02-27 20:30] LABS: PARTIAL THROMBOPLASTIN TIME 29.4 sec (23.4-31.0); PROTHROMBIN TIME 10.4 sec (9.6-11.0)
[2023-02-27] MEDS: VANCOMYCIN 1G PREMIX 200 ML IV SCH (21:08)
[2023-02-28] VITALS: BP 144/56
[2023-02-28 04:00] VITALS: BP 142/56
[2023-02-28] MEDS: GABAPENTIN 100MG CAPSULE PO SCH ×3 (06:05→23:14)
[2023-02-28] MEDS: METRONIDAZOLE 500MG TABLET PO SCH ×2 (06:05→16:50)
[2023-02-28] MEDS: BLOOD SUGAR DIAGNOSTIC STRIP TEST SCH ×4 (06:05→21:00)
[2023-02-28] MEDS: INSULIN LISPRO 100 UNITS/ML SUBCUT SCH ×4 (06:06→23:16)
[2023-02-28 06:35] LABS: EOSINOPHILS % 4.1 % (0.0-5.0); HEMATOCRIT. 28.7 % (36.0-48.0); HEMOGLOBIN. 9.5 g/dL (12.0-16.0); LYMPHOCYTES % 18.6 % (20.0-50.0); MEAN CORPUSCULAR HEMOGLOBIN 29.4 pg (28.0-32.0); MEAN PLATELET VOLUME 6.9 fl (7.4-10.4); MONOCYTES % 9.3 % (2.0-8.0); PLATELET 482 x1000/uL (130-400); RED BLOOD CELL COUNT 3.22 mill/uL (4.2-5.4); RED CELL DISTRIBUTION WIDTH 17.7 % (11.6-14.6)
[2023-02-28 07:00] LABS: CHLORIDE 103 mEq/L (98-107)
[2023-02-28 08:00] VITALS: BP 151/69
[2023-02-28] MEDS: PANTOPRAZOLE SODIUM 40 MG/VIAL IV SCH ×2 (09:00→11:35)
[2023-02-28] MEDS: CYANOCOBALAMIN 1000MCG/ML VIAL SUBCUT SCH (11:37)
[2023-02-28] MEDS: CARVEDILOL 12.5MG TABLET PO SCH ×2 (11:38→21:00)
[2023-02-28] MEDS: EZETIMIBE 10MG TABLET PO SCH (11:39)
[2023-02-28] MEDS: LISINOPRIL 5MG TABLET PO SCH (11:39)
[2023-02-28] MEDS: ASCORBIC ACID 500 MG TABLET PO SCH ×2 (11:40→16:49)
[2023-02-28] MEDS: AMLODIPINE 5MG TABLET PO SCH ×3 (11:40→17:08)
[2023-02-28] MEDS: FERROUS SULFATE 325MG TABLET PO SCH ×2 (11:40→16:50)
[2023-02-28] MEDS: INSULIN GLARGINE 100 UNITS/ML SUBCUT SCH (11:42)
[2023-02-28 12:00] VITALS: BP 145/63
[2023-02-28] MEDS: CEFTRIAXONE 1GM PREMIX 50 ML IV SCH (13:00)
[2023-02-28 16:00] VITALS: BP 128/61
[2023-02-28 20:00] VITALS: BP 107/47
[2023-02-28] MEDS: VANCOMYCIN 1G PREMIX 200 ML IV SCH (20:00)
[2023-03-01] VITALS (7 sets, daily range): BP systolic 102–128; BP diastolic 47–59
[2023-03-01 06:42] LABS: BASOPHILS % 1.2 % (0.0-2.0); HEMATOCRIT. 29.7 % (36.0-48.0); HEMOGLOBIN. 9.9 g/dL (12.0-16.0); LYMPHOCYTES % 23.7 % (20.0-50.0); MEAN CORPUSCULAR HEMOGLOBIN 29.4 pg (28.0-32.0); MEAN CORPUSCULAR VOLUME 88.4 fL (81.0-99.0); MEAN PLATELET VOLUME 6.7 fl (7.4-10.4); MONOCYTES % 9.2 % (2.0-8.0); NEUTROPHILS % 60.9 % (40.0-76.0); PLATELET 464 x1000/uL (130-400); RED BLOOD CELL COUNT 3.36 mill/uL (4.2-5.4)
[2023-03-01] MEDS: GABAPENTIN 100MG CAPSULE PO SCH ×3 (06:58→21:11)
[2023-03-01] MEDS: METRONIDAZOLE 500MG TABLET PO SCH ×2 (06:59→18:18)
[2023-03-01] MEDS: BLOOD SUGAR DIAGNOSTIC STRIP TEST SCH ×4 (06:59→20:17)
[2023-03-01 08:29] LABS: CHLORIDE 105 mEq/L (98-107)
[2023-03-01] MEDS: FERROUS SULFATE 325MG TABLET PO SCH ×2 (08:48→17:35)
[2023-03-01] MEDS: ASCORBIC ACID 500 MG TABLET PO SCH ×2 (08:48→17:35)
[2023-03-01] MEDS: EZETIMIBE 10MG TABLET PO SCH (08:50)
[2023-03-01] MEDS: INSULIN LISPRO 100 UNITS/ML SUBCUT SCH ×5 (08:50→21:12)
[2023-03-01] MEDS: CYANOCOBALAMIN 1000MCG/ML VIAL SUBCUT SCH (08:55)
[2023-03-01] MEDS: AMLODIPINE 5MG TABLET PO SCH ×2 (08:56→17:00)
[2023-03-01] MEDS: CARVEDILOL 12.5MG TABLET PO SCH ×2 (08:56→21:00)
[2023-03-01] MEDS: LISINOPRIL 5MG TABLET PO SCH (08:57)
[2023-03-01] MEDS: PANTOPRAZOLE SODIUM 40 MG/VIAL IV SCH (08:58)
[2023-03-01] MEDS: CEFTRIAXONE 1GM PREMIX 50 ML IV SCH (13:16)
[2023-03-01] MEDS: VANCOMYCIN 1G PREMIX 200 ML IV SCH (13:16)
[2023-03-01] MEDS: TRAZODONE HCL 50MG TABLET PO SCH (21:10)
[2023-03-02] VITALS: BP 147/56
[2023-03-02 04:00] VITALS: BP 137/59
[2023-03-02] MEDS: BLOOD SUGAR DIAGNOSTIC STRIP TEST SCH ×4 (06:00→21:00)
[2023-03-02] MEDS: METRONIDAZOLE 500MG TABLET PO SCH ×2 (06:14→17:38)
[2023-03-02] MEDS: ASCORBIC ACID 500 MG TABLET PO SCH ×2 (06:14→17:38)
[2023-03-02] MEDS: FERROUS SULFATE 325MG TABLET PO SCH ×2 (06:14→17:38)
[2023-03-02 06:15] LABS: BASOPHILS % 0.9 % (0.0-2.0); EOSINOPHILS % 4.9 % (0.0-5.0); HEMATOCRIT. 25.4 % (36.0-48.0); HEMOGLOBIN. 8.4 g/dL (12.0-16.0); LYMPHOCYTES % 20.4 % (20.0-50.0); MEAN CORPUSCULAR HEMOGLOBIN 29.3 pg (28.0-32.0); MEAN CORPUSCULAR VOLUME 88.9 fL (81.0-99.0); MEAN PLATELET VOLUME 6.8 fl (7.4-10.4); MONOCYTES % 10.2 % (2.0-8.0); NEUTROPHILS % 63.6 % (40.0-76.0); PLATELET 411 x1000/uL (130-400); RED BLOOD CELL COUNT 2.86 mill/uL (4.2-5.4); RED CELL DISTRIBUTION WIDTH 18.6 % (11.6-14.6)
[2023-03-02] MEDS: GABAPENTIN 100MG CAPSULE PO SCH ×3 (06:15→21:10)
[2023-03-02] MEDS: INSULIN LISPRO 100 UNITS/ML SUBCUT SCH ×4 (06:16→21:14)
[2023-03-02 06:44] LABS: CHLORIDE 104 mEq/L (98-107)
[2023-03-02 08:00] VITALS: BP 126/46
[2023-03-02] MEDS: PANTOPRAZOLE SODIUM 40 MG/VIAL IV SCH (08:51)
[2023-03-02] MEDS: CYANOCOBALAMIN 1000MCG/ML VIAL SUBCUT SCH (08:51)
[2023-03-02] MEDS: LISINOPRIL 5MG TABLET PO SCH (08:52)
[2023-03-02] MEDS: EZETIMIBE 10MG TABLET PO SCH (08:52)
[2023-03-02] MEDS: AMLODIPINE 5MG TABLET PO SCH ×2 (08:52→17:38)
[2023-03-02] MEDS: CARVEDILOL 12.5MG TABLET PO SCH ×2 (08:52→21:00)
[2023-03-02] MEDS: INSULIN GLARGINE 100 UNITS/ML SUBCUT SCH (10:36)
[2023-03-02 12:00] VITALS: BP 110/46
[2023-03-02] MEDS: CEFTRIAXONE 1GM PREMIX 50 ML IV SCH (12:46)
[2023-03-02] MEDS: VANCOMYCIN 1G PREMIX 200 ML IV SCH (13:49)
[2023-03-02 16:00] VITALS: BP 110/50
[2023-03-02 20:00] VITALS: BP 97/43
[2023-03-02] MEDS: TRAZODONE HCL 50MG TABLET PO SCH (21:11)
[2023-03-03] VITALS: BP 144/57
[2023-03-03 04:00] VITALS: BP 142/51
[2023-03-03] MEDS: METRONIDAZOLE 500MG TABLET PO SCH ×2 (06:08→17:49)
[2023-03-03] MEDS: BLOOD SUGAR DIAGNOSTIC STRIP TEST SCH ×3 (06:09→16:40)
[2023-03-03] MEDS: GABAPENTIN 100MG CAPSULE PO SCH ×2 (06:09→14:21)
[2023-03-03] MEDS: ASCORBIC ACID 500 MG TABLET PO SCH ×2 (06:10→17:49)
[2023-03-03] MEDS: FERROUS SULFATE 325MG TABLET PO SCH ×2 (06:10→17:49)
[2023-03-03] MEDS: INSULIN LISPRO 100 UNITS/ML SUBCUT SCH ×3 (06:11→17:49)
[2023-03-03 06:12] LABS: BASOPHILS % 0.7 % (0.0-2.0); EOSINOPHILS % 4.9 % (0.0-5.0); HEMATOCRIT. 27.7 % (36.0-48.0); LYMPHOCYTES % 20.4 % (20.0-50.0); MEAN CORPUSCULAR HEMOGLOBIN 29.1 pg (28.0-32.0); MEAN CORPUSCULAR VOLUME 89.9 fL (81.0-99.0); MEAN PLATELET VOLUME 6.8 fl (7.4-10.4); MONOCYTES % 9.7 % (2.0-8.0); NEUTROPHILS % 64.3 % (40.0-76.0); PLATELET 417 x1000/uL (130-400); RED BLOOD CELL COUNT 3.08 mill/uL (4.2-5.4); RED CELL DISTRIBUTION WIDTH 18.5 % (11.6-14.6)
[2023-03-03 08:00] VITALS: BP 143/52
[2023-03-03 08:45] LABS: CHLORIDE 105 mEq/L (98-107)
[2023-03-03] MEDS: PANTOPRAZOLE SODIUM 40 MG/VIAL IV SCH (09:20)
[2023-03-03] MEDS: AMLODIPINE 5MG TABLET PO SCH ×2 (09:20→17:00)
[2023-03-03] MEDS: EZETIMIBE 10MG TABLET PO SCH (09:20)
[2023-03-03] MEDS: LISINOPRIL 5MG TABLET PO SCH (09:20)
[2023-03-03] MEDS: CYANOCOBALAMIN 1000MCG/ML VIAL SUBCUT SCH (09:20)
[2023-03-03] MEDS: CARVEDILOL 12.5MG TABLET PO SCH (09:20)
[2023-03-03] MEDS: INSULIN GLARGINE 100 UNITS/ML SUBCUT SCH (10:08)
[2023-03-03 12:00] VITALS: BP 121/58
[2023-03-03] MEDS: CEFTRIAXONE 1GM PREMIX 50 ML IV SCH (13:32)
[2023-03-03] MEDS: VANCOMYCIN 1G PREMIX 200 ML IV SCH (14:16)
[2023-03-03 16:00] VITALS: BP 96/49
[2023-03-03 17:23] VITALS: BP 96/49
== END 2023-03-03 20:55 | disposition home health service (06) | DRG 300 ==
LOC: ER 08:30 → MICUSO 09:31 → EDBEDREQ 09:33 → EDBEDREQTM 09:33 → ENRESERV 11:42 → EDBEDREQSVC 14:11 → EDBEDREQTM 15:20 → 7EST 02-24 00:39
PROVIDERS: ADMIT Internal Medicine Nephrology; ATTEND Internal Medicine Nephrology
PROC: 02HV33Z Insertion of Infusion Device into Superior Vena Cava, Percutaneous Approach (ICD-10-PCS; principal; 2023-02-23)
PROC: B548ZZA Ultrasonography of Superior Vena Cava, Guidance (ICD-10-PCS; 2023-02-23)
PROC: 30233N1 Transfusion of Nonautologous Red Blood Cells into Peripheral Vein, Percutaneous Approach (ICD-10-PCS; 2023-02-24)
PROC: 02HV33Z Insertion of Infusion Device into Superior Vena Cava, Percutaneous Approach (ICD-10-PCS; 2023-03-03)
PROC: B548ZZA Ultrasonography of Superior Vena Cava, Guidance (ICD-10-PCS; 2023-03-03)
DX: E11.52 Type 2 diabetes mellitus with diabetic peripheral angiopathy with gangrene (principal); E44.1 Mild protein-calorie malnutrition; I69.354 Hemiplegia and hemiparesis following cerebral infarction affecting left non-dominant side; M86.8X6 Other osteomyelitis, lower leg; E11.621 Type 2 diabetes mellitus with foot ulcer; F17.210 Nicotine dependence, cigarettes, uncomplicated; I10 Essential (primary) hypertension; Z20.822 Contact with and (suspected) exposure to COVID-19; L97.529 Non-pressure chronic ulcer of other part of left foot with unspecified severity; I70.8 Atherosclerosis of other arteries; D64.9 Anemia, unspecified; F79 Unspecified intellectual disabilities; E11.69 Type 2 diabetes mellitus with other specified complication; Z87.11 Personal history of peptic ulcer disease; Z88.0 Allergy status to penicillin; Z89.432 Acquired absence of left foot; Z79.4 Long term (current) use of insulin; Z89.612 Acquired absence of left leg above knee; Z79.899 Other long term (current) drug therapy; Z91.199 Patient's noncompliance with other medical treatment and regimen due to unspecified reason; Z79.02 Long term (current) use of antithrombotics/antiplatelets; Z79.82 Long term (current) use of aspirin; Z79.84 Long term (current) use of oral hypoglycemic drugs
CPT/HCPCS: 36415; 36573; 71045; 73620; 73718; 75635; 80048; 80053; 80202; 82270; 82607; 82728; 82746; 82962; 83036; 83540; 83550; 83735; 84100; 84443; 84484; 85014; 85018; 85025; 85044; 85651; 86850; 86900; 86920; 87426; 93005; 93306; 93970; 99285; C1725; C9113; J0360; J0696; J1815; J1956; J3370; J3420; J3475; J3490; J7060; P9016; Q9967; J8499

== ENCOUNTER 2023-03-21 15:57 | Emergency (ER) | payer MEDICARE, BC, OTHER ==
[~2023-03-21] VITALS: Ht 165.1 cm; Wt 82.0 kg
[2023-03-21 15:59] VITALS: BP 136/67
[2023-03-21] MEDS ORDERED: VANCOMYCIN 1G PREMIX 200 ML IV ONE (19:30)
[2023-03-21] MEDS ORDERED: CEFTRIAXONE 1GM PREMIX 50 ML IV ONE (19:30)
== END 2023-03-21 21:30 | disposition home or self-care (01) ==
LOC: ER 15:57
DX: T82.514A Breakdown (mechanical) of infusion catheter, initial encounter (principal); X58.XXXA Exposure to other specified factors, initial encounter; D64.9 Anemia, unspecified; E11.9 Type 2 diabetes mellitus without complications; I10 Essential (primary) hypertension; Z86.73 Personal history of transient ischemic attack (TIA), and cerebral infarction without residual deficits
CPT/HCPCS: 71045; 96365; 96367; 99284; J0696; J3370

== ENCOUNTER 2023-03-22 13:11 | Emergency (ER) | payer MEDICARE, BC, OTHER ==
[~2023-03-22] VITALS: Ht 160 cm; Wt 82.0 kg
[2023-03-22] MEDS ORDERED: VANCOMYCIN 1G PREMIX 200 ML IV NR (15:30)
[2023-03-22] MEDS ORDERED: CEFTRIAXONE 1GM PREMIX 50 ML IV NR (16:00)
[2023-03-22 20:00] VITALS: BP 152/62
== END 2023-03-22 20:56 | disposition home or self-care (01) ==
LOC: ER 13:11
DX: T82.514A Breakdown (mechanical) of infusion catheter, initial encounter (principal); M86.8X7 Other osteomyelitis, ankle and foot; E11.9 Type 2 diabetes mellitus without complications; I10 Essential (primary) hypertension; Z86.73 Personal history of transient ischemic attack (TIA), and cerebral infarction without residual deficits; Z79.84 Long term (current) use of oral hypoglycemic drugs; Z88.0 Allergy status to penicillin; Z79.4 Long term (current) use of insulin; Y92.89 Other specified places as the place of occurrence of the external cause
CPT/HCPCS: 96365; 96375; 99284; J0696; J3370